=== PATIENT | female | born 1940 | race Caucasian/White ===

== ENCOUNTER 2018-11-21 07:50 | Inpatient (IN) | payer MEDICARE, BC ==
[~2018-11-21] VITALS: Ht 165.1 cm; Wt 72.6 kg
--- NOTE | ~2018-11-21 | HEMODYNAMI ---
PATIENT:TYRA MOYER MEDICAL RECORD: [id number] : 42 [facility] ADMISSION DATE: 11/22/18 Generatedon:11/22/201816:38 Patient name: TYRA MOYER Patient #: [id number] SSN: : Date of study: 11/22/2018 Page: Of Hemodynamic Procedure Report Patient Data Patient Demographics Procedure consent was obtained First Name: TYRA Gender: Female Last Name: COMFORT : 1940 [facility] Initial: ROSITA Age: 78 year(s) Patient #: [id number] Race: Unknown Additional ID: [id number] Contact details [address]: [address] [place] [address] rd State: [place] City: [place] Zip code: [address] Past Medical History Allergies Allergen Reaction Date Comments Reported Other allergy 11/22/2018 PCN Admission Admission Data Admission Date: 11/22/2018 Admission Time: 15:51 Admit Source: Emergency department Room #: D.2109 Lab Results Lab Result Date: 11/22/2018 Lab Result Time: 0:00 Biochemistry Name Units Result Min Max BUN mg/dl 20 --(----)*- 7 18 Creatinine mg/dl 0.9 --(-*--)-- 0.6 1.3 CBC Name Units Result Min Max Hematocrit % 29.2 *-(----)-- 42 54 Hemoglobin g/dl 10 *-(----)-- 13.5 17.5 Procedure Procedure Types Cath Procedure Diagnostic Procedure LHC LH w/Coronaries Sedation Charges Moderate Sedation up to 15 minutes Procedure Description Procedure Date Procedure Date: 11/22/2018 Procedure Start Time: 16:18 Procedure End Time: 16:36 Procedure Staff Name Function Elver Hercules MD Performing Physician Carlos Enrique Verma RT Monitor Kevin Anderson RT Scrub Carrie Mejia RT Scrub Sha Jordan RN Nurse Procedure Data Cath Procedure Fluoroscopy Diagnostic fluoroscopy Total fluoroscopy Time: 1.9 time: 1.9 min min Diagnostic fluoroscopy Total fluoroscopy dose: 476 dose: 476 mGy mGy Contrast Material Contrast Material Type Amount (ml) Isovue 300 67 Entry Location Entry Primary Successful Side Size Upsize Upsize Entry Closure Succes sful Closure Location (Fr) 1 (Fr) 2 (Fr) Remarks Device Remarks Femoral Right 5 Fr Exoseal artery Estimated blood loss: 5 ml Diagnostic catheters Device Type Used For End Catheter Placement MULTIPACK JL 4.0 5Fr Procedure catheter MULTIPACK 3DRC 5Fr Procedure catheter MULTIPACK Pigtail 5 Fr Procedure catheter Procedure Complications No complications Procedure Medications Medication Administration Route Dosage 0.9% NaCl I.V. 100 ml/hr Oxygen etCO2 Nasal cannula 2 l/min Heparin Flush Bag added to field 2 bags (1000units/500ml NS) Lidocaine 2% added to field 20 Zofran I.V. 4 mg Versed I.V. 0.5 mg Fentanyl I.V. 25 mcg Fentanyl I.V. 25 mcg Versed I.V. 0.5 mg Fentanyl I.V. 50 mcg Hemodynamics Rest HGB: 10 (g/dl) Heart Rate: 101 (bpm) Pressure Samples Time Site Value (mmHg) Purpose Heart Use Rate(bpm) 16:28 LV 138/-7,14 Snapshot 107 16:30 AO 140/64(98) Pullback 87 16:30 LV 135/18,24 Pullback 87 Gradients Valve Time Site 1 Site 2 Mean SEP/DFP Peak To Heart Use (mmHg) (sec/min) Peak Rate (mmHg) (bpm) Aortic 16:30 LV AO 0 23 0 87 135/18,24 140/64(98) Calculations Valve P-P Mean Valve Index Valve Source Name Gradient Area Flow (cm2) Aortic 0 0 0 0 Snapshots Pre Cath Intra NCS Post Cath Vital Signs Time Heart Resp SPO2 etCO2 NIBP (mmHg) Rhythm Pain Sedation Rate (ipm) (%) (mmHg) Status Level (bpm) 16:01:29 92 21 96 0 135/75(112) NSR 0 (11) 10(A) , No pain 16:05:19 101 22 98 0 137/76(102) NSR 0 (11) 10(A) , No pain 16:09:12 100 17 95 0 123/64(105) NSR 0 (11) 10(A) , No pain 16:13:00 97 16 88 33.1 112/69(94) NSR 0 (11) 10(A) , No pain 16:16:49 96 18 93 28.5 118/65(83) NSR 0 (11) 10(A) , No pain 16:20:37 96 19 96 9 128/73(97) NSR 0 (11) 9(A) , No pain 16:24:26 96 20 96 15.7 132/70(95) NSR 0 (11) 9(A) , No pain 16:28:46 92 16 98 21.8 137/72(96) NSR 0 (11) 9(A) , No pain 16:32:35 96 20 98 24.8 137/79(109) NSR 0 (11) 10(A) , No pain 16:36:27 93 22 99 13.5 145/76(120) NSR 0 (11) 10(A) , No pain Medications Time Medication Route Dose Verified Delivered Reason Notes Eff ectiveness by by 16:00:33 0.9% NaCl I.V. 100 Sha Sha Per ml/hr Julian Jordan physician RN RN 16:00:43 Oxygen etCO2 2 Sha Sha for low 02 Nasal l/min Lorigan Lorigan sats cannula RN RN 16:00:53 Heparin Flush added 2 Sha Sha used for Bag to bags Lorigan Lorigan procedure (1000units/500ml field RN RN NS) 16:01:02 Lidocaine 2% added 20ml Sha Sha for local to vial Lorigan Lorigan anesthetic field RN RN 16:04:30 Zofran I.V. 4 mg Sha Sha for nausea Julian Jordan RN RN 16:09:57 Versed I.V. 0.5 Sha Sha for mg Lorigan Lorigan sedation RN RN 16:10:06 Fentanyl I.V. 25 Sha Sha for mcg Lorigan Lorigan sedation RN RN 16:23:10 Fentanyl I.V. 25 Sha Sha for mcg Lorigan Lorigan sedation RN RN 16:26:51 Versed I.V. 0.5 Sha Sha for mg Lorigan Lorigan sedation RN RN 16:36:42 Fentanyl I.V. 50 Sha Sha for mcg Lorigan Lorigan sedation RN flight readiness technician Log Time Note 15:31:23 Admit Source: Emergency department 15:31:43 Procedure Status Urgent Heart Cath (IP). 15:31:45 Time tracking: Regular hours (M-F 7:00 - 5:00) 15:31:48 Plan of Care:Hemodynamics will remain stable., Cardiac rhythm will remain stable., Comfort level will be maintained., Respiratory function will remain adequate., Patient/ family verbilizes understanding of procedure., Procedure tolerated without complication., Recovers from procedure without complications.. 15:31:56 H&P Date Dictated: 11/21/2018 Within 30 days and on chart.. 15:44:34 Lab Result : BUN 20 mg/dl 15:44:34 Lab Result : Creatinine 0.9 mg/dl 15:44:34 Lab Result : Hemoglobin 10 g/dl 15:44:34 Lab Result : Hematocrit 29.2 % 15:44:38 Lab results completed and on chart. 15:49:24 Kevin Anderson RT(R) sent for patient. Start room use. 15:53:59 Patient received from Med II to CCL 2 Alert and oriented. Tansferred to table in Supine position. 15:54:01 Signed procedure consent form obtained from patient. 15:54:02 Warm blankets applied, and niall hugger turned on for patient comfort. 15:54:03 Correct patient and procedure confirmed by team. 15:54:04 ECG and BP/O2 sat monitors applied to patient. 15:54:06 Pre-procedure instructions explained to patient. 15:54:06 Pre-op teaching completed and patient verbalized understanding. 15:54:07 Family in waiting room. 15:54:08 Patient NPO since Midnight. 16:00:33 0.9% NaCl 100 ml/hr I.V. was administered by Sha Jordan RN; Per physician; 16:00:43 Oxygen 2 l/min etCO2 Nasal cannula was administered by Sha Jordan RN; for low 02 sats; 16:00:44 Vital chart was started 16:00:45 Baseline sample Acquired. 16:00:50 Rhythm: sinus rhythm 16:00:51 Full Disclosure recording started 16:00:53 Heparin Flush Bag (1000units/500ml NS) 2 bags added to field was administered by Sha Jordan RN; used for procedure; 16:01:02 Lidocaine 2% 20ml vial added to field was administered by Sha Jordan RN; for local anesthetic; 16:04:19 Patient allergic to Other allergyPCN 16:04:20 Is the patient allergic to Iodine/contrast media? No. 16:04:22 Is patient on blood thinner?No 16:04:23 Patient diabetic? No. 16:04:26 Previous problem with sedation/anesthesia? No ? 16:04:30 Zofran 4 mg I.V. was administered by Sha Jordan RN; for nausea; 16:04:31 Snore? Yes 16:04:32 Sleep apnea? No 16:04:32 Deviated septum? No 16:04:33 Opens mouth fully? Yes 16:04:34 Sticks out tongue? Yes 16:04:39 Airway obstruction? No ? 16:04:41 Dentures? No ? 16:04:43 Pre procedure: right dorsailis pedis pulse 2+ Normal; easily identifiable; not easily obliterated 16:04:46 Patient pain scale 0/10 ?. 16:04:56 IV patent on arrival in right antecubital with 0.9% NaCl at [facility]. 16:05:00 Right groin area was prepped with chlora-prep and draped in sterile fashion 16:05:01 Alarms reviewed by R. N. 16:05:02 Sharps counted by scrub and verified by R.N. 16:05:04 Use device set Femoral Dx 16:05:05 ACIST Syringe (66256) opened to sterile field. 16:05:06 Bag Decanter (2002S) opened to sterile field. 16:05:06 Medline Cath Pack ([id number]) opened to sterile field. 16:05:07 ACIST Hand Control (68819) opened to sterile field. 16:05:07 ACIST Manifold (26037) opened to sterile field. 16:05:08 Tegaderm 4 x 4 (1626W) opened to sterile field. 16:05:09 DIAGNOSTIC Multipack 5Fr catheter set (OQ2365) opened to sterile field. 16:05:10 EMERALD Guide Wire (502-452) opened to sterile field. 16:05:11 SHEATH 5FR Edgerton ([id number]) opened to sterile field. 16:08:28 Physician arrived 16:08:28 --------ALL STOP TIME OUT------ 16:08:29 Final Timeout: patient, procedure, and site verified with staff and physician. All members of the team are in agreement. 16:08:30 Right groin site verified by team. 16:08:33 Fire Safety Assessment: A--An alcohol-based skin anteseptic being used preoperatively., C--Open oxygen or nitrous oxide is being used., D--An ESU, laser, or fiber-optic light is being used. 16:08:36 Physical assessment completed. ASA score P 3 - A patient with severe systemic disease as per Elver Hercules MD. 16:08:54 2) 60-89 Mildly reduced kidney function, and other findings (as for stage 1) point to kidney disease. 16:09:12 Maximum allowable contrast does (3.7 X eGFR X 0.75)177 ml. 16:09:15 Sedation plan: IV Moderate Sedation Medication:Versed, Fentanyl 16:09:57 Versed 0.5 mg I.V. was administered by Sha Jordan RN; for sedation; 16:10:06 Fentanyl 25 mcg I.V. was administered by Sha Jordan RN; for sedation; 16:18:44 Procedure started. 16:18:46 Local anesthetic to right femoral artery with Lidocaine 2% by Elver Hercules MD.INITIAL ACCESS ONLY 16:18:53 A 5 Fr sheath was inserted into the Right Femoral artery 16:19:15 Zero performed for pressure channel P1 16:20:52 A MULTIPACK JL 4.0 5Fr catheter was advanced over the wire and used for Procedure. 16:21:19 LCA angiography performed. 16:22:35 Catheter exchanged over wire. 16:22:41 A MULTIPACK 3DRC 5Fr catheter was advanced over the wire and used for Procedure. 16:23:10 Fentanyl 25 mcg I.V. was administered by Sha Jordan RN; for sedation; 16:24:39 RCA angiography performed. 16:25:38 Catheter exchanged over wire. 16:25:42 A MULTIPACK Pigtail 5 Fr catheter was advanced over the wire and used for Procedure. 16:26:51 Versed 0.5 mg I.V. was administered by Sha Jordan RN; for sedation; 16:28:29 LV gram done using LEVIN 16:28:32 Injector settings: Ml/sec: 10, Volume: 20, 16:28:33 LV hemodynamics recorded. 16:30:21 EF : 45 % 16:32:50 Catheter removed. 16:32:52 EXOSEAL 5Fr (EX500) opened to sterile field. 16:32:58 Sheath removed intact; hemostasis achieved with Exoseal to the Right Femoral artery. 16:32:59 Procedure ended.(Physican Out) 16:33:15 Fluoroscopy time 01.90 minutes. 16:33:19 Fluoroscopy dose: 476 mGy 16:33:19 Flurop Dose total: 476 16:34:10 Contrast amount:Isovue 300 67ml. 16:34:13 Maximum allowable dose exceeded? No. 16:34:14 Sharps counted by scrub and verified by R.N. 16:34:15 Insertion/operative site no bleeding no hematoma. 16:34:17 Post-op/insertion site Right Femoral artery dressed using a 4 x 4 and Tegaderm. 16:34:20 Post right femoral artery:stable, soft, clean and dry 16:34:21 Post Procedure Pulses reassessed and unchanged 16:34:24 Post-procedure physical assessment completed. ASA score P 3 - A patient with severe systemic disease as per Elver Hercules MD. 16:34:27 Post procedure rhythm: unchanged. 16:35:09 Estimated blood loss: 5 ml 16:35:10 Post procedure instruction explained to patient.Patient verbalizes understanding. 16:35:10 Patient needs reinforcement of post procedure teaching. 16:35:47 Procedure type changed to Cath procedure, Diagnostic procedure, LHC, LHC w/Coronaries, Sedation Charges, Moderate Sedation up to 15 minutes 16:36:36 Procedure and supply charges have been captured, reviewed, submitted and are correct. 16:36:38 Procedure Complication : No complications 16:36:40 Vital chart was stopped 16:36:40 See physician's report for complete and final results. 16:36:42 Fentanyl 50 mcg I.V. was administered by Sha Jordan RN; for sedation; 16:36:43 Report given to PCU. 16:36:46 Patient transfered to PCU with Stretcher. 16:36:47 Procedure ended. 16:36:47 Full Disclosure recording stopped 16:36:53 End room use (Document Last) Device Usage Item Name Manufacture Quantity Catalog Hospital Part Current Minimal L ot# / Number Charge Number Stock Stock Serial# Code ACIST Acleonid 1 98968 226235 072270 595460 20 Syringe Medical (64280) Systems Inc Bag Microtek 1 2001S 360633 32015 021224 5 Decanter Medical Inc. () Medline Medline 1 [id number] 353893 82128 082899 5 Cath Pack ([id number]) ACIST Hand Acist 1 70353 364876 755059 014014 5 Control Medical (64002) Systems Inc ACIST Acist 1 55602 266857 322319 991259 5 Manifold Medical (24562) Systems Inc Tegaderm 4 3M 1 1626W 257940 356058 078960 5 x 4 (1626W) DIAGNOSTIC Cardinal 1 [id number] 963755 26974 059565 30 Multipack Real Time Content 5Fr catheter set (EO3987) EMERALD Cardinal 1 502455 557719 792043 241816 5 Guide Wire Health (502-233) SHEATH 5FR Terumo 1 XDQ327 086084 502973 846913 5 Edgerton (XJS655) MULTIPACK Cardinal 1 614163 5 JL 4.0 5Fr Health catheter MULTIPACK Cardinal 1 255366 5 3DRC 5Fr Health catheter MULTIPACK Cardinal 1 865801 5 Pigtail 5 Health Fr catheter EXOSEAL 5Fr Cardinal 1 EX500 206204 561898 219191 10 (EX500) Health Signature Audit Greene Stage Time Signature Unsigned Intra-Procedure 11/22/2018 Carlos Enrique Verma 4:38:38 PM RT(R) Signatures Performing Physician : Signature : Elver Hercules MD Date : Time : Monitor : Carlos Enrique Verma RT Signature : Date : Time : Nurse : Sha Jordan Signature : RN Date : Time : [place] [address] [place] [address]
[2018-11-21] MEDS ORDERED: OXYCONTIN10 MG PO (07:57)
[2018-11-21] MEDS ORDERED: CHILDREN'S ALLE30 M1 SL (07:57)
[2018-11-21] MEDS ORDERED: BAYER CHEWABLE81 MG PO (07:57)
[2018-11-21 08:25] LABS: BASOPHILS 0.1 % (0-2); EOSINOPHILS 0.1 % (0-7); HEMATOCRIT 35.7 % (36.0-48.0); HEMOGLOBIN 12.6 g/dL (12-16); IMMATURE GRANULOCYTES 0.3 % (0-5); LYMPHOCYTES 9.9 % (15-50); MCH 31.3 pg (26.0-34.0); MCHC 35.3 g/dL (31.0-37.0); MCV 88.8 fL (80.0-100.0); MEAN PLATELET VOLUME 10.1 fL (7.4-10.4); NEUTROPHILS 81.6 % (40-80); PLATELET COUNT 351 10x3/uL (130-400); RBC 4.02 10x6/uL (4.00-5.40); RDW 13.3 % (11.5-14.5); WBC 18.8 10x3/uL (4.8-10.8)
[2018-11-21 08:37] LABS: ALBUMIN 3.1 g/dL (3.4-5.0); ANION GAP 13.5 mmol/L (8-16); BILIRUBIN - TOTAL 0.71 mg/dL (0.2-1.3); CALCIUM 8.9 mg/dL (8.5-10.1); CARBON DIOXIDE 27.4 mmol/L (21.0-32.0); POTASSIUM - SERUM 3.9 mmol/L (3.5-5.1); PROTEIN - SERUM 7.4 g/dL (6.4-8.2)
[2018-11-21 09:26] LABS: APPEARANCE CLEAR (CLEAR); BILIRUBIN NEGATIVE (NEGATIVE); COLOR YELLOW (YELLOW); GLUCOSE NEGATIVE (NEGATIVE); KETONE MODERATE mg/dL (NEGATIVE); NITRITE NEGATIVE (NEGATIVE); PROTEIN NEGATIVE (NEGATIVE); UROBILINOGEN NORMAL (NORMAL)
[2018-11-21] MEDS ORDERED: ZOFRAN8 MG PO (10:17)
[2018-11-21] MEDS ORDERED: PROTONIX40 MG PO (10:17)
[2018-11-21 15:39] LABS: CKMB 1.9 U/L (0.0-3.6); CREATINE KINASE 264 UL (21-215)
[2018-11-21 15:41] LABS: TROPONIN-I 0.341 ng/mL (0.000-0.060)
[2018-11-21 17:11] VITALS: BP 171/93
[2018-11-21 20:00] VITALS: BP 130/64
[2018-11-21 23:13] LABS: CREATINE KINASE 314 UL (21-215)
[2018-11-22 03:51] LABS: BASOPHILS 0.1 % (0-2); EOSINOPHILS 0.5 % (0-7); HEMATOCRIT 29.2 % (36.0-48.0); IMMATURE GRANULOCYTES 0.2 % (0-5); LYMPHOCYTES 12.8 % (15-50); MCH 30.9 pg (26.0-34.0); MCHC 34.2 g/dL (31.0-37.0); MCV 90.1 fL (80.0-100.0); MEAN PLATELET VOLUME 9.9 fL (7.4-10.4); MONOCYTES 9.9 % (2-11); NEUTROPHILS 76.5 % (40-80); PLATELET COUNT 317 10x3/uL (130-400); RBC 3.24 10x6/uL (4.00-5.40); RDW 13.4 % (11.5-14.5); WBC 14.8 10x3/uL (4.8-10.8)
[2018-11-22 04:00] VITALS: BP 109/60
[2018-11-22 04:18] LABS: ALBUMIN 2.5 g/dL (3.4-5.0); ALKALINE PHOSPHATASE 64 U/L (46-116); ALT (SGPT) 17 U/L (10-68); CALC OSMOLALITY 276 mosm/kg (275-300); CALCIUM 8.1 mg/dL (8.5-10.1); CARBON DIOXIDE 27.8 mmol/L (21.0-32.0); CHLORIDE - SERUM 103 mmol/L (98-107); CREATINE KINASE 264 UL (21-215); CREATININE - SERUM 0.9 mg/dL (0.6-1.3); GLUCOSE 100 mg/dL (74-106); POTASSIUM - SERUM 4.4 mmol/L (3.5-5.1); PROTEIN - SERUM 5.8 g/dL (6.4-8.2); SODIUM 137 mmol/L (136-145); UREA NITROGEN 20 mg/dL (7-18); eGFR NON AFRICAN AMERICAN 64 mL/min (90-120)
[2018-11-22 04:23] LABS: TROPONIN-I 4.161 ng/mL (0.000-0.060)
[2018-11-22 05:54] VITALS: BP 169/60; BMI 26.6
[2018-11-22 08:52] VITALS: BP 141/68
[2018-11-22 13:39] VITALS: Ht 165.1 cm; Wt 72.6 kg
[2018-11-22 13:56] VITALS: BP 136/66
[2018-11-22 17:39] VITALS: BP 137/64
[2018-11-22 20:00] VITALS: BP 169/90
[2018-11-23 04:00] VITALS: BP 152/93
[2018-11-23 06:44] LABS: BASOPHILS 0.2 % (0-2); EOSINOPHILS 2.9 % (0-7); HEMATOCRIT 27.1 % (36.0-48.0); HEMOGLOBIN 9.1 g/dL (12-16); IMMATURE GRANULOCYTES 0.3 % (0-5); LYMPHOCYTES 15.7 % (15-50); MCH 30.4 pg (26.0-34.0); MCHC 33.6 g/dL (31.0-37.0); MCV 90.6 fL (80.0-100.0); MEAN PLATELET VOLUME 9.8 fL (7.4-10.4); NEUTROPHILS 69.9 % (40-80); PLATELET COUNT 329 10x3/uL (130-400); RBC 2.99 10x6/uL (4.00-5.40); RDW 13.5 % (11.5-14.5); WBC 11.6 10x3/uL (4.8-10.8)
[2018-11-23 07:09] LABS: ALBUMIN 2.3 g/dL (3.4-5.0); ANION GAP 8.6 mmol/L (8-16); BILIRUBIN - TOTAL 0.45 mg/dL (0.2-1.3); CALCIUM 7.8 mg/dL (8.5-10.1); CARBON DIOXIDE 27.8 mmol/L (21.0-32.0); CREATININE - SERUM 0.9 mg/dL (0.6-1.3); PHOSPHOROUS 2.8 mg/dL (2.5-4.9); PROTEIN - SERUM 5.5 g/dL (6.4-8.2)
[2018-11-23 07:22] LABS: POTASSIUM - SERUM 3.4 mmol/L (3.5-5.1)
[2018-11-23 08:40] VITALS: BP 134/70
[2018-11-23 12:27] VITALS: BP 101/55
--- NOTE | 2018-11-23 12:36 | MORECARE ---
CASE MANAGEMENT DISCHARGE SUMMARY PATIENT: TYRA MOYER UNIT: [id number] ADM DATE: 11/22/18 AGE: 78 : 41 SEX: F ROOM/BED: D.2104 AUTHOR: LOC MAHAN PHYSICIAN: REFERRING PHYSICIAN: CARY PAGAN MD DATE OF SERVICE: 11/23/18 Discharge Plan Patient Name: TYRA MOYER [facility] [facility] 1940 Planned Disposition: Acute Care Hospital Anticipated Discharge Date: 11/23/18 Discharge Date: Expected LOS: 1 Initial Reviewer: [email or web address] Initial Review Date: 11/23/2018 Generated: 11/23/18 1:35 pm DCPIA - Discharge Planning Initial Assessment Updated by [email or web address]: Sonny Gerardo on 11/23/18 12:31 pm * Is the patient Alert and Oriented? Yes * How many steps to enter\exit or inside your home? * PCP DR. LOVETT * [email or web address] * Preadmission Environment Home with Family * ADLs Independent * Equipment Other * Other Equipment CPM FOR RECENTLY REPLACED [employer] NO MEDICAL EQUIPMENT PROVIDER PREFERENCE * List name and contact numbers for known caregivers / representatives who currently or will assist patient after discharge: BEN MOYER, SPOUSE, * Verbal permission to speak to the caregivers and representatives has been obtained from the patient. N/A * Community resources currently utilized None * Please name any agencies selected above. NONE * Additional services required to return to the preadmission environment? No * Can the patient safely return to the preadmission environment? Yes * Has this patient been hospitalized within the prior 30 days at any hospital? Yes Patient Name: TYRA MOYER Page [phone] at 1236 All edits/amendments must be made on the electronic document DICTATION DATE: 11/23/18 1235 SAGGER FILLER: LINH 11/23/18 1235 RPT#: [id number] DC DATE: STATUS: ADM IN [facility] [address] [place] [address] END OF REPORT
--- NOTE | 2018-11-23 12:46 | MORECARE ---
CASE MANAGEMENT DISCHARGE SUMMARY PATIENT: TYRA MOYER UNIT: [id number] ADM DATE: 11/22/18 AGE: 78 : 41 SEX: F ROOM/BED: D.7197 AUTHOR: KALLI,DOC PHYSICIAN: REFERRING PHYSICIAN: CARY PAGAN MD DATE OF SERVICE: 11/23/18 Discharge Plan Patient Name: TYRA MOYER Facility: [facility]:[place] : 1940 Planned Disposition: Acute Care Hospital Anticipated Discharge Date: 11/23/18 Discharge Date: Expected LOS: 1 Initial Reviewer: [email or web address] Initial Review Date: 11/23/2018 Generated: 11/23/18 1:46 pm Comments DCP- Discharge Planning Updated by [email or web address]: Sonny Gerardo on 11/23/18 11:[address] Patient Name: TYRA MOYER Encounter No: [id number] : 1940 Primary Insurance: MEDICARE A & B Anticipated DC Date: 11-23-2018 Planned Disposition: Acute Care Hospital External Planned Provider: [facility] DISCHARGE PLANNING NOTE: CM SPOKE TO VIVEK DIAZ WHO INFORMED CM THAT PT HAS REQUESTED TRANSFER TO [facility] IN [place] AND UNDERSTANDS THAT IT WOULD BE A LATERAL TRANSFER. CM MET WITH PT AND DAUGHTER TILA IN ROOM TO DISCUSS DISCHARGE PLANNING AND NEEDS. TYRA MOYER provided verbal consent to discuss current and ongoing needs with/in the presence of: DAUGHTERTILA. PT REPORTS LIVING AT HOME INDEPENDENTLY WITH HER SPOUSE. PT HAS CPM FROM [employer] REPLACEMENT WITH NO MEDICAL EQUIPMENT PROVIDER PREFERNECE. PT HAS NO OUTSIDE SERVICES ASSISTING IN THE HOME. CM DISCUSSED AVAILABILITY OF HOME HEALTH, REHAB SERVICES AND MEDICAL EQUIPMENT. PT DENIES DISCHARGE NEEDS, REPORTS WANTING TRANSFERRED TO [facility]. CM DISCUSSED THAT THE TRANSFER WOULD BE A LATERAL TRANSFER AND THE SERVICES ARE AVAILABLE HERE TO TREAT THE PT. CM EXPLAINED THAT INSURANCE MAY NOT PAY FOR TRANSPORTATION TO THE OTHER HOSPITAL AND FUTHER EXPLAINED ACCEPTANCE AND TRANSFER PROCESS. PT REPORTS UNDERSTANDING AND STATES SHE WILL PAY FOR AMBULANCE FOR TRANSFER. CM SPOKE TO ERNESTO CONNORS WHO IS WAITING ON CLIENT CONSULTANT APPROVAL TO MOVE FORWARD WITH TRANSFER PROCESS. CM WAITING ADMINISTRATIVE APPROVAL TO CONTINUE WITH TRANSFER PROCESS. MALCOLM CHRIS DCPIA - Discharge Planning Initial Assessment Updated by [email or web address]: Sonny Gerardo on 11/23/18 12:31 pm * Is the patient Alert and Oriented? Yes * How many steps to enter\exit or inside your home? * PCP DR. LOVETT * Pharmacy [facility] [address] * Preadmission Environment Home with Family * ADLs Independent * Equipment Other * Other Equipment CPM FOR RECENTLY REPLACED KNEE NO MEDICAL EQUIPMENT PROVIDER PREFERENCE * List name and contact numbers for known caregivers / representatives who currently or will assist patient after discharge: BEN MOYER, SPOUSE, * Verbal permission to speak to the caregivers and representatives has been obtained from the patient. N/A * Community resources currently utilized None * Please name any agencies selected above. NONE * Additional services required to return to the preadmission environment? No * Can the patient safely return to the preadmission environment? Yes * Has this patient been hospitalized within the prior 30 days at any hospital? Yes Last DP export: 11/23/18 11:36 a Patient Name: TYRA MOYER Page [phone] at 1246 All edits/amendments must be made on the electronic document DICTATION DATE: 11/23/18 1245 RIPSAW GRADER: LINH 11/23/18 1245 RPT#: [id number] DC DATE: STATUS: ADM IN [facility] [address] [place] [address] END OF REPORT
--- NOTE | 2018-11-23 16:16 | MORECARE ---
CASE MANAGEMENT DISCHARGE SUMMARY PATIENT: TYRA MOYER UNIT: [id number] ADM DATE: 11/22/18 AGE: 78 : 41 SEX: F ROOM/BED: D.2106 AUTHOR: LOC MAHAN PHYSICIAN: REFERRING PHYSICIAN: CARY PAGAN MD DATE OF SERVICE: 11/23/18 Discharge Plan Patient Name: TYRA MOYER Facility: [facility]:[place] : 1940 Planned Disposition: Acute Care Hospital Anticipated Discharge Date: 11/23/18 Discharge Date: Expected LOS: 1 Initial Reviewer: [id number] Initial Review Date: 11/23/2018 Generated: 11/23/18 5:15 pm Comments DCP- Discharge Planning Updated by [id number]: Lorraine Mccoy on 11/23/18 3:[address] @ 0803 VIVEK WILLIAMSON CAME TO ME STATING THAT THE PATIENT IS REQUESTING TRANSFER TO THE [facility]. 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 HE CONFIRMED THAT THIS WAS A LATERAL TRANSFER, BUT PATIENT WAS REQUESTING THIS AND WE NEEDED TO TRY TO HONOR HER REQUEST. IT WAS STATED THAT THE PATIENT HAD ISSUES WTIH HER CARE, STARTING IN THE ER. @ 0813, I SPOKE WITH ERNESTO HERNÁNDEZFIBERGLASS PIPE COVERING SUPERVISOR ABOUT THE SITUTATION. SHE STATED THAT SHE WAS NOT APPROVING THE TRANSFER THAT SHE WOULD HAVE TO TALK TO SHERI AND CALL ME BACK. @ 1313, I PLACED ANOTHER CALL TO SHINGLES ROOFER HELPER AND SPOKE WITH ERNESTO RHODES. EXPLAINED THAT I SPOKE WITH BETTY THIS AM AND HAVE NOT HEARD BACK AND THE PATIENT AND 2 MD'S ARE QUESTIONING WHERE WE WERE ON THE TRANSFER AND I HAVE EXPLAINED TO ALL OF THEM THAT I CAN NOT PROCEED WITHOUT ADMIN AUTH. SHE STATED THAT SHE WILL HAVE TO GET WITH KONG ABOUT THIS TRANSFER AND GET BACK WITH ME. @ 4562 TEETEE DOTSON CLERK TOLD ME THAT SHE RECEIVED AUTH FOR THE TRANSFER ABOUT 30 MINUTES AGO AND FORGOT TO TELL ME THAT KONG AUTHORIZED THE TRANSFER TO THE [facility]. AT THIS TIME I ATTEMPTED TO GET MD PHONE NUMBER FOR DOC TO LOC, AND DR PAGAN STATED TO ME THAT SHE WOULD HAVE TO GET BACK WITH ME. @4745, DR PAGAN CAME TO ME AND STATED THAT SHE WAS READY FOR THE DOC AND HER CELL PHONE NUMBER WAS GIVEN POINT OF CONTACT FOR DOC TO DOC. I PLACED A CALL TO THE EXCHANGE AT [phone] AND WAS TOLD THAT I NEEDED TO CALL [phone]. I CALLED THIS NUMBER AND IT WAS THE SHINGLES ROOFER HELPER FOR [facility] WHO EXPLAINED THAT I NEEDED TO CALL THE EXCHANGE AT [phone] KOVACS. I CALLED THE NUMBER BACK AND EXPLAINED THIS TO THE EXCHANGE AND THEY TOOK DR PAGAN'S INFORMATION. A COUPLE MINUTES LATER, DR PAGAN STATED THAT THE WRONG DR KOVACS WAS PAGED, THAT THE NEUROLOGIST CALLED HER BACK. I CALLED THE EXCHANGE BACK AND EXPLAINED THIS TO THEM. DR ANYA KOVACS HAD BEEN PAGED AND THEY WOULD PAGE DR ARELY KOAVCS AND HAVE HIM CALL DR PAGAN TO DISCUSS THE TRANSFER. WILL WAIT ON DETERMINATION. DCP- Discharge Planning Updated by [id number]: Sonny Mitchell on 11/23/18 11:[address] Patient Name: TYRA MOYER Encounter No: [id number] : 1940 Primary Insurance: MEDICARE A & B Anticipated DC Date: 11-23-2018 Planned Disposition: Acute Care Hospital External Planned Provider: [facility] DISCHARGE PLANNING NOTE: CM SPOKE TO VIVEK DIAZ WHO INFORMED CM THAT PT HAS REQUESTED TRANSFER TO [facility] IN [place] AND UNDERSTANDS THAT IT WOULD BE A LATERAL TRANSFER. CM MET WITH PT AND DAUGHTER TILA IN ROOM TO DISCUSS DISCHARGE PLANNING AND NEEDS. TYRA MOYER provided verbal consent to discuss current and ongoing needs with/in the presence of: DAUGHTERTILA. PT REPORTS LIVING AT HOME INDEPENDENTLY WITH HER SPOUSE. PT HAS CPM FROM [employer] WITH NO MEDICAL EQUIPMENT PROVIDER PREFERNECE. PT HAS NO OUTSIDE SERVICES ASSISTING IN THE HOME. CM DISCUSSED AVAILABILITY OF HOME HEALTH, REHAB SERVICES AND MEDICAL EQUIPMENT. PT DENIES DISCHARGE NEEDS, REPORTS WANTING TRANSFERRED TO [facility]. CM DISCUSSED THAT THE TRANSFER WOULD BE A LATERAL TRANSFER AND THE SERVICES ARE AVAILABLE HERE TO TREAT THE PT. CM EXPLAINED THAT INSURANCE MAY NOT PAY FOR TRANSPORTATION TO THE OTHER HOSPITAL AND FUTHER EXPLAINED ACCEPTANCE AND TRANSFER PROCESS. PT REPORTS UNDERSTANDING AND STATES SHE WILL PAY FOR AMBULANCE FOR TRANSFER. CM SPOKE TO ERNESTO MCCOY WHO IS WAITING ON [employer] SALESPERSON APPROVAL TO MOVE FORWARD WITH TRANSFER PROCESS. CM WAITING ADMINISTRATIVE APPROVAL TO CONTINUE WITH TRANSFER PROCESS. SONNY MITCHELL, CASE MANAGEMENT DCPIA - Discharge Planning Initial Assessment Updated by [id number]: Sonny Mitchell on 11/23/18 12:31 pm * Is the patient Alert and Oriented? Yes * How many steps to enter\exit or inside your home? * PCP DR. LOVETT * Pharmacy [facility] [address] * Preadmission Environment Home with Family * ADLs Independent * Equipment Other * Other Equipment CPM FOR RECENTLY REPLACED [employer] NO MEDICAL EQUIPMENT PROVIDER PREFERENCE * List name and contact numbers for known caregivers / representatives who currently or will assist patient after discharge: BEN MOYER, SPOUSE, * Verbal permission to speak to the caregivers and representatives has been obtained from the patient. N/A * Community resources currently utilized None * Please name any agencies selected above. NONE * Additional services required to return to the preadmission environment? No * Can the patient safely return to the preadmission environment? Yes * Has this patient been hospitalized within the prior 30 days at any hospital? Yes Last DP export: 11/23/18 11:46 a Patient Name: TYRA MOYER Page 65379 at 1616 All edits/amendments must be made on the electronic document DICTATION DATE: 11/23/181614 GYPSUM BLOCK SETTER: LINH 11/23/181614 RPT#: [id number] DC DATE: STATUS: ADM IN [facility] [address] [place] [address] END OF REPORT
--- NOTE | 2018-11-23 17:17 | MORECARE ---
CASE MANAGEMENT DISCHARGE SUMMARY PATIENT: TYRA MOYER UNIT: [id number] ADM DATE: 11/22/18 AGE: 78 : 41 SEX: F ROOM/BED: D.0738 AUTHOR: LOC MAHAN PHYSICIAN: REFERRING PHYSICIAN: CARY PAGAN MD DATE OF SERVICE: 11/23/18 Discharge Plan Patient Name: TYRA MOYER Facility: [facility]:[place] : 1940 Planned Disposition: Acute Care Hospital Anticipated Discharge Date: 11/23/18 Discharge Date: Expected LOS: 1 Initial Reviewer: [id number] Initial Review Date: 11/23/2018 Generated: 11/23/18 6:17 pm Comments DCP- Discharge Planning Updated by [email or web address]: Lorraine Mccoy on 11/23/18 4:[address] @[address] PAGAN THAT DR NITA AL HAS ACCEPTED THE PATIENT AND I NEEDED TO CALL THE RESOURCE NURSE AT [phone]. I PLACED THE CALL TO THAT NUMBER, SPOKE WITH OCTAVIO. ALL REQUESTED INFORMATION GIVEN AND SHE HAS REQUESTED THAT THE FACESHEET, EKG, AND LABS BE FAXED TO [phone]. SHE HAS ALSO REQUESTED THAT THE CATH DONE BE BURNED TO A DISC AND SENT WITH THE PATIENT. I EXPLAINED WE WOULD DO. CALL PLACED TO MEDICAL IMAGING AND THEY STATED THAT [employer] [employer] HAD TO BURN THE DISK FOR US. CALLED [facility] AND THEY HAVE LEFT FOR THE DAY. CALL PLACED TO [employer] [employer] RECOVERY, MICHELLE WILL WORK ON GETTING IT BURNED TO DISK AND WILL BRING IT/HAVE IT BROUGHT TO THE FLOOR WHEN DONE. I HAVE PASSED THE INFORMATION ON TO THE FLOOR COORDINATOR AND BEDSIDE NURSE GIANNA. DCP- Discharge Planning Updated by [id number]: Lorraine Mccoy on 11/23/18 3:[address] @ 0803 VIVEK WILLIAMSON CAME TO ME STATING THAT THE PATIENT IS REQUESTING TRANSFER TO THE [facility]. 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 HE CONFIRMED THAT THIS WAS A LATERAL TRANSFER, BUT PATIENT WAS REQUESTING THIS AND WE NEEDED TO TRY TO HONOR HER REQUEST. IT WAS STATED THAT THE PATIENT HAD ISSUES WTIH HER CARE, STARTING IN THE ER. @ 812, I SPOKE WITH ERNESTO HERNÁNDEZSHERIFF DETECTIVE ABOUT THE SITUTATION. SHE STATED THAT SHE WAS NOT APPROVING THE TRANSFER THAT SHE WOULD HAVE TO TALK TO SHERI AND CALL ME BACK. @ 0883, I PLACED ANOTHER CALL TO TIP STITCHER AND SPOKE WITH ERNESTO RHODES. EXPLAINED THAT I SPOKE WITH BETTY THIS AM AND HAVE NOT HEARD BACK AND THE PATIENT AND 2 MD'S ARE QUESTIONING WHERE WE WERE ON THE TRANSFER AND I HAVE EXPLAINED TO ALL OF THEM THAT I CAN NOT PROCEED WITHOUT ADMIN AUTH. SHE STATED THAT SHE WILL HAVE TO GET WITH KONG ABOUT THIS TRANSFER AND GET BACK WITH ME. @ 0617 MAURITEETEE SALCIDO CLERK TOLD ME THAT SHE RECEIVED AUTH FOR THE TRANSFER ABOUT 30 MINUTES AGO AND FORGOT TO TELL ME THAT KONG AUTHORIZED THE TRANSFER TO THE [facility]. AT THIS TIME I ATTEMPTED TO GET MD PHONE NUMBER FOR DOC TO DOC, AND DR PAGAN STATED TO ME THAT SHE WOULD HAVE TO GET BACK WITH ME. @3713, DR PAGAN CAME TO ME AND STATED THAT SHE WAS READY FOR THE DOC AND HER CELL PHONE NUMBER WAS GIVEN POINT OF CONTACT FOR DOC TO DOC. I PLACED A CALL TO THE EXCHANGE AT [phone] AND WAS TOLD THAT I NEEDED TO CALL [phone]. I CALLED THIS NUMBER AND IT WAS THE TIP STITCHER FOR [facility] WHO EXPLAINED THAT I NEEDED TO CALL THE EXCHANGE AT [phone] KOVACS. I CALLED THE NUMBER BACK AND EXPLAINED THIS TO THE EXCHANGE AND THEY TOOK DR PAGAN'S INFORMATION. A COUPLE MINUTES LATER, DR PAGAN STATED THAT THE WRONG DR KOVACS WAS PAGED, THAT THE NEUROLOGIST CALLED HER BACK. I CALLED THE EXCHANGE BACK AND EXPLAINED THIS TO THEM. DR ANYA KOVACS HAD BEEN PAGED AND THEY WOULD PAGE DR ARELY KOVACS AND HAVE HIM CALL DR PAGAN TO DISCUSS THE TRANSFER. WILL WAIT ON DETERMINATION. DCP- Discharge Planning Updated by [id number]: Geoffrey Mitchell on 11/23/18 11:[address] Patient Name: TYRA MOYER Encounter No: [id number] : 1940 Primary Insurance: MEDICARE A & B Anticipated DC Date: 11-23-2018 Planned Disposition: Acute Care Hospital External Planned Provider: [facility] DISCHARGE PLANNING NOTE: CM SPOKE TO VIVEK DIAZ WHO INFORMED CM THAT PT HAS REQUESTED TRANSFER TO [facility] IN [place] AND UNDERSTANDS THAT IT WOULD BE A LATERAL TRANSFER. CM MET WITH PT AND DAUGHTER TILA IN ROOM TO DISCUSS DISCHARGE PLANNING AND NEEDS. TYRA MOYER provided verbal consent to discuss current and ongoing needs with/in the presence of: DAUGHTER, TILA. PT REPORTS LIVING AT HOME INDEPENDENTLY WITH HER SPOUSE. PT HAS CPM FROM [employer] WITH NO MEDICAL EQUIPMENT PROVIDER PREFERNECE. PT HAS NO OUTSIDE SERVICES ASSISTING IN THE HOME. CM DISCUSSED AVAILABILITY OF HOME HEALTH, REHAB SERVICES AND MEDICAL EQUIPMENT. PT DENIES DISCHARGE NEEDS, REPORTS WANTING TRANSFERRED TO [facility]. CM DISCUSSED THAT THE TRANSFER WOULD BE A LATERAL TRANSFER AND THE SERVICES ARE AVAILABLE HERE TO TREAT THE PT. CM EXPLAINED THAT INSURANCE MAY NOT PAY FOR TRANSPORTATION TO THE OTHER HOSPITAL AND FUTHER EXPLAINED ACCEPTANCE AND TRANSFER PROCESS. PT REPORTS UNDERSTANDING AND STATES SHE WILL PAY FOR AMBULANCE FOR TRANSFER. CM SPOKE TO ERNESTO MCCOY WHO IS WAITING ON HPLC CHEMIST APPROVAL TO MOVE FORWARD WITH TRANSFER PROCESS. CM WAITING ADMINISTRATIVE APPROVAL TO CONTINUE WITH TRANSFER PROCESS. GEOFFREY MITCHELL, CASE MANAGEMENT DCPIA - Discharge Planning Initial Assessment Updated by [id number]: Geoffrey Mitchell on 11/23/18 12:31 pm * Is the patient Alert and Oriented? Yes * How many steps to enter\exit or inside your home? * PCP DR. LOVETT * Pharmacy [facility] [address] * Preadmission Environment Home with Family * ADLs Independent * Equipment Other * Other Equipment CPM FOR RECENTLY REPLACED [employer]NEE NO MEDICAL EQUIPMENT PROVIDER PREFERENCE * List name and contact numbers for known caregivers / representatives who currently or will assist patient after discharge: BEN MOYER, SPOUSE, * Verbal permission to speak to the caregivers and representatives has been obtained from the patient. N/A * Community resources currently utilized None * Please name any agencies selected above. NONE * Additional services required to return to the preadmission environment? No * Can the patient safely return to the preadmission environment? Yes * Has this patient been hospitalized within the prior 30 days at any hospital? Yes Last DP export: 11/23/18 3:16 p Patient Name: TYRA MOYER Page 86441 at 6969 All edits/amendments must be made on the electronic document DICTATION DATE: 11/23/181716 [employer] DIRECTOR: LINH 11/23/181716 RPT#: [id number] DC DATE: STATUS: ADM IN [facility] [address] [place] [address] END OF REPORT
[2018-11-23] MEDS ORDERED: XOPENEX 1.1.25 MG/3 UPD (17:51)
[2018-11-23] MEDS ORDERED: COREG 3.1253.125 MG PO (17:52)
[2018-11-23] MEDS ORDERED: HYDRALAZINE20 MG/ML IV (17:52)
[2018-11-23] MEDS ORDERED: NITRO-DUR0.2 MG TRANSDERM (17:53)
[2018-11-23] MEDS ORDERED: NITROQUICK0.4 MG SL (17:53)
[2018-11-23] MEDS ORDERED: MORPHINE 44 MG/1 M1 IV (17:54)
[2018-11-23] MEDS ORDERED: BAYER CHEWABLE81 MG PO (17:54)
[2018-11-23] MEDS ORDERED: OXYCONTIN10 MG PO (17:55)
[2018-11-23] MEDS ORDERED: PROTONIX IV (17:56)
[2018-11-23] MEDS ORDERED: ZOFRAN IV (17:56)
--- NOTE | 2018-11-24 07:23 | MORECARE ---
CASE MANAGEMENT DISCHARGE SUMMARY PATIENT: TYRA MOYER UNIT: [id number] ADM DATE: 11/22/18 AGE: 78 : 41 SEX: F ROOM/BED: D.3459 AUTHOR: LOC MAHAN PHYSICIAN: REFERRING PHYSICIAN: CARY PAGAN MD DATE OF SERVICE: 11/24/18 Discharge Plan Patient Name: TYRA MOYER Facility: [facility]:[place] : 1940 Planned Disposition: Acute Care Hospital Anticipated Discharge Date: 11/23/18 Discharge Date: 11/23/2018 Expected LOS: 1 Initial Reviewer: [id number] Initial Review Date: 11/23/2018 Generated: 11/24/18 8:23 am Comments DCP- Discharge Planning Updated by [email or web address]: Lorraine Mccoy on 11/23/18 4:[address] @[address] PAGAN THAT DR NITA AL HAS ACCEPTED THE PATIENT AND I NEEDED TO CALL THE RESOURCE NURSE AT [phone]. I PLACED THE CALL TO THAT NUMBER, SPOKE WITH OCATVIO. ALL REQUESTED INFORMATION GIVEN AND SHE HAS REQUESTED THAT THE FACESHEET, EKG, AND LABS BE FAXED TO [phone]. SHE HAS ALSO REQUESTED THAT THE CATH DONE BE BURNED TO A DISC AND SENT WITH THE PATIENT. I EXPLAINED WE WOULD DO. CALL PLACED TO MEDICAL IMAGING AND THEY STATED THAT [facility] [employer] A[facility]LYST HAD TO BURN THE DISK FOR US. CALLED [employer] ANALYST AND THEY HAVE LEFT FOR THE DAY. CALL PLACED TO [employer] A[facility]LYST RECOVERY, MICHELLE WILL WORK ON GETTING IT BURNED TO DISK AND WILL BRING IT/HAVE IT BROUGHT TO THE FLOOR WHEN DONE. I HAVE PASSED THE INFORMATION ON TO THE FLOOR COORDINATOR AND BEDSIDE NURSE GIANNA. DCP- Discharge Planning Updated by [id number]: Lorraine Mccoy on 11/23/18 3:[address] @ 0803 VIVEK WILLIAMSON CAME TO ME STATING THAT THE PATIENT IS REQUESTING TRANSFER TO THE [facility]. 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 HE CONFIRMED THAT THIS WAS A LATERAL TRANSFER, BUT PATIENT WAS REQUESTING THIS AND WE NEEDED TO TRY TO HONOR HER REQUEST. IT WAS STATED THAT THE PATIENT HAD ISSUES WTIH HER CARE, STARTING IN THE ER. @ 0813, I SPOKE WITH ERNESTO HERNÁNDEZCOIL PLACER ABOUT THE SITUTATION. SHE STATED THAT SHE WAS NOT APPROVING THE TRANSFER THAT SHE WOULD HAVE TO TALK TO SHERI AND CALL ME BACK. @ 1313, I PLACED ANOTHER CALL TO APPRAISAL COORDINATOR AND SPOKE WITH ERNESTO RHODES. EXPLAINED THAT I SPOKE WITH BETTY THIS AM AND HAVE NOT HEARD BACK AND THE PATIENT AND 2 MD'S ARE QUESTIONING WHERE WE WERE ON THE TRANSFER AND I HAVE EXPLAINED TO ALL OF THEM THAT I CAN NOT PROCEED WITHOUT ADMIN AUTH. SHE STATED THAT SHE WILL HAVE TO GET WITH KONG ABOUT THIS TRANSFER AND GET BACK WITH ME. @ 7443 TEETEE DOTSON TOLD ME THAT SHE RECEIVED AUTH FOR THE TRANSFER ABOUT 30 MINUTES AGO AND FORGOT TO TELL ME THAT KONG AUTHORIZED THE TRANSFER TO THE [facility]. AT THIS TIME I ATTEMPTED TO GET MD PHONE NUMBER FOR DOC TO DOC, AND DR PAGAN STATED TO ME THAT SHE WOULD HAVE TO GET BACK WITH ME. @0726, DR PAGAN CAME TO ME AND STATED THAT SHE WAS READY FOR THE DOC AND HER CELL PHONE NUMBER WAS GIVEN POINT OF CONTACT FOR DOC TO DOC. I PLACED A CALL TO THE EXCHANGE AT [phone] AND WAS TOLD THAT I NEEDED TO CALL [phone]. I CALLED THIS NUMBER AND IT WAS THE APPRAISAL COORDINATOR FOR [facility] WHO EXPLAINED THAT I NEEDED TO CALL THE EXCHANGE AT [phone] KOVACS. I CALLED THE NUMBER BACK AND EXPLAINED THIS TO THE EXCHANGE AND THEY TOOK DR PAGAN'S INFORMATION. A COUPLE MINUTES LATER, DR PAGAN STATED THAT THE WRONG DR KOVACS WAS PAGED, THAT THE NEUROLOGIST CALLED HER BACK. I CALLED THE EXCHANGE BACK AND EXPLAINED THIS TO THEM. DR ANYA KOVACS HAD BEEN PAGED AND THEY WOULD PAGE DR ARELY KOVACS AND HAVE HIM CALL DR PAGAN TO DISCUSS THE TRANSFER. WILL WAIT ON DETERMINATION. DCP- Discharge Planning Updated by [id number]: Geoffrey Mitchell on 11/23/18 11:[address] Patient Name: TYRA MOYER Encounter No: [id number] : 1940 Primary Insurance: MEDICARE A & B Anticipated DC Date: 11-23-2018 Planned Disposition: Acute Care Hospital External Planned Provider: [facility] DISCHARGE PLANNING NOTE: JOSE SPOKE TO VIVEK DIAZ WHO INFORMED CM THAT PT HAS REQUESTED TRANSFER TO [facility] IN [place] AND UNDERSTANDS THAT IT WOULD BE A LATERAL TRANSFER. CM MET WITH PT AND DAUGHTER TILA IN ROOM TO DISCUSS DISCHARGE PLANNING AND NEEDS. TYRA MOYER provided verbal consent to discuss current and ongoing needs with/in the presence of: DAUGHTER, TILA. PT REPORTS LIVING AT HOME INDEPENDENTLY WITH HER SPOUSE. PT HAS CPM FROM [employer] WITH NO MEDICAL EQUIPMENT PROVIDER PREFERNECE. PT HAS NO OUTSIDE SERVICES ASSISTING IN THE HOME. CM DISCUSSED AVAILABILITY OF HOME HEALTH, REHAB SERVICES AND MEDICAL EQUIPMENT. PT DENIES DISCHARGE NEEDS, REPORTS WANTING TRANSFERRED TO [facility]. CM DISCUSSED THAT THE TRANSFER WOULD BE A LATERAL TRANSFER AND THE SERVICES ARE AVAILABLE HERE TO TREAT THE PT. CM EXPLAINED THAT INSURANCE MAY NOT PAY FOR TRANSPORTATION TO THE OTHER HOSPITAL AND FUTHER EXPLAINED ACCEPTANCE AND TRANSFER PROCESS. PT REPORTS UNDERSTANDING AND STATES SHE WILL PAY FOR AMBULANCE FOR TRANSFER. CM SPOKE TO ERNESTO MCCOY WHO IS WAITING ON METAL PATTERN MAKER APPROVAL TO MOVE FORWARD WITH TRANSFER PROCESS. CM WAITING ADMINISTRATIVE APPROVAL TO CONTINUE WITH TRANSFER PROCESS. GEOFFREY MITCHELL, CASE MANAGEMENT DCPIA - Discharge Planning Initial Assessment Updated by [id number]: Geoffrey Mitchell on 11/23/18 12:31 pm * Is the patient Alert and Oriented? Yes * How many steps to enter\exit or inside your home? * PCP DR. LOVETT * Pharmacy [facility] [address] * Preadmission Environment Home with Family * ADLs Independent * Equipment Other * Other Equipment CPM FOR RECENTLY REPLACED KNEE NO MEDICAL EQUIPMENT PROVIDER PREFERENCE * List name and contact numbers for known caregivers / representatives who currently or will assist patient after discharge: BEN MOYER, SPOUSE, * Verbal permission to speak to the caregivers and representatives has been obtained from the patient. N/A * Community resources currently utilized None * Please name any agencies selected above. NONE * Additional services required to return to the preadmission environment? No * Can the patient safely return to the preadmission environment? Yes * Has this patient been hospitalized within the prior 30 days at any hospital? Yes Last DP export: 11/23/18 4:17 p Patient Name: TYRA MYOER Page 77608 at 0723 All edits/amendments must be made on the electronic document DICTATION DATE: 11/24/18721 MAGNETOMETER OPERATOR: DM 11/24/18721 RPT#: [id number] DC DATE:11/23/18 STATUS: DIS IN [facility] [address] [place] [address] END OF REPORT
== END 2018-11-23 20:15 | disposition short-term general hospital (02) | DRG 282 ==
LOC: D.ER 07:50 → D.M2 18:00 → OBSVTIME 18:28 → D.M2 11-22 15:51
PROVIDERS: Emergency Medicine; Family Medicine; Internal Medicine Cardiovascular Disease; ADMIT Family Medicine; ATTEND Family Medicine
PROC: B2151ZZ Fluoroscopy of Left Heart using Low Osmolar Contrast (ICD-10-PCS; 2018-11-22)
PROC: 4A023N7 Measurement of Cardiac Sampling and Pressure, Left Heart, Percutaneous Approach (ICD-10-PCS; 2018-11-22)
PROC: B2111ZZ Fluoroscopy of Multiple Coronary Arteries using Low Osmolar Contrast (ICD-10-PCS; principal; 2018-11-22 15:49)
DX: I21.4 Non-ST elevation (NSTEMI) myocardial infarction (principal); K52.9 Noninfective gastroenteritis and colitis, unspecified; E86.0 Dehydration; N20.0 Calculus of kidney; R79.89 Other specified abnormal findings of blood chemistry; I25.10 Atherosclerotic heart disease of native coronary artery without angina pectoris